=== PATIENT | female | born 1970 | race Caucasian/White ===

== ENCOUNTER 2018-06-24 19:33 | Emergency (ER) | payer OTHER ==
[2018-06-24 19:44] VITALS: BP 143/68; PULSE 73; TEMP 98; BMI 28.5
[2018-06-24] MEDS ORDERED: ALBUTEROL SO4 2.5/IPRATROPIUM 0.5 INH SOL 3 ML VIAL.NEB. NEB ONE ×3 (21:02→21:05)
--- NOTE | 2018-06-24 21:07 | PDOC ---
History of Present Illness - General Chief Complaint: Cold Symptoms Stated Complaint: cold symptoms Time Seen by Provider: 06/24/18 21:01 - History of Present Illness Initial Comments: 06/24/18 21:03 Chief complaint: Cold symptoms History of present illness: 48 years old no significant past medical history presents emergency Department with 1-2 day history of runny nose cough congestion some mild chest pressure only with coughing nonexertional No travel no PE DVT risk factors. Symptoms are mild to moderate persistent constant exacerbated by coughing no alleviating factors. Past History - Past Medical History Allergies/Adverse Reactions: Allergies Allergy/AdvReac Type Severity Reaction Status Date / Time No Known Allergies Allergy Verified 06/24/18 19:44 Home Medications: Ambulatory Orders Albuterol Sulfate Inhaler - [Ventolin Hfa Inhaler -] 1 - 2 inh PO Q4H #1 inhaler 06/24/18 Asthma: Yes COPD: No - Suicide/Smoking/Psychosocial Hx Smoking History: Never smoked Have you smoked in the past 12 months: No Information on smoking cessation initiated: No Hx Alcohol Use: No Drug/Substance Use Hx: No Substance Use Type: None Review of Systems - Review of Systems Comments:: 06/24/18 21:07 ROS: A complete review of 10 out of 10 review of systems is taken and is negative apart from what is previously mentioned below and in the HPI. *Physical Exam - Vital Signs Last Vital Signs Temp Pulse Resp BP Pulse Ox 98.0 F 73 16 143/68 100 06/24/18 19:43 06/24/18 19:43 06/24/18 19:43 06/24/18 19:43 06/24/18 19:43 - Physical Exam Comments: 06/24/18 21:07 Vitals: Triage Vital signs reviewed General Appearance: no acute distress, well nourished well developed, Head: Atraumatic, Eyes: Pupils equal reactive round, extraocular movement intact Nose: Nares patent bilaterally;+ nasal congestion Throat: Posterior oropharynx without erythema, mucous membranes moist, Neck: Supple;No Nucal rigidity Chest Wall: Nontender Cardiac: Regular rate and rhythym, no murmurs, no rubs, no gallops, Lungs: Mild bronchospastic cough Abdomen: Soft, non distended, normal bowel sounds, non tender to palpation Extremities: Full range of motion to all extremities, no cyanosis, clubbing, or edema Skin: Warm and dry, no rashes or lesions, no rash, no petechiae Psych: normal mood, normal affect Moderate Sedation - Procedure Monitoring Vital Signs: Procedure Monitoring Vital Signs Temperature 98.0 F 06/24/18 19:43 Pulse Rate 73 06/24/18 19:43 Respiratory Rate 16 06/24/18 19:43 Blood Pressure 143/68 06/24/18 19:43 O2 Sat by Pulse Oximetry (%) 100 06/24/18 19:43 Medical Decision Making - Medical Decision Making 06/24/18 21:08 Well-appearing no apparent distress history and examination consistent with viral bronchitis Status post to duo nebs in the emergency department patient feels better. We'll discharge with Ventolin pump she'll follow-up with her primary care provider on Tuesday or Tuesday she'll return to the ED for any severe worsening symptoms or for any concerns. Findings, the need for follow-up and strict return instructions discussed with patient. *DC/Admit/Observation/Transfer Diagnosis at time of Disposition: Bronchitis - Discharge Dispostion Disposition: HOME Decision to Admit order: No - [place] [facility] [place] [facility] [place]Provider Group] - Patient Instructions Printed Discharge Instructions: DI for Acute Bronchitis Additional Instructions: Ventolin MDI as prescribed. Follow-up with your doctor on Tuesday. Return to the emergency department for any severe worsening symptoms or for any concerns. - Post Discharge Activity
== END 2018-06-24 21:14 | disposition home or self-care (01) ==
LOC: JERFT 19:33
PROC: 3E0F7GC Introduction of Other Therapeutic Substance into Respiratory Tract, Via Natural or Artificial Opening (ICD-10-PCS; principal; 2018-06-24)
DX: J40 Bronchitis, not specified as acute or chronic (principal)
CPT/HCPCS: 94640; 99281-25